=== PATIENT | male | born 1955 | race Two or more races ===

== ENCOUNTER → 2020-04-29 | Outpatient (CLI) | payer BC ==
--- NOTE | 2020-04-29 16:11 | CT ---
EXAMINATION TYPE: CT pelvis w con DATE OF EXAM: 04/29/2020 COMPARISON: None HISTORY: LLQ mass CT DLP: 431.6 mGycm CONTRAST: CT scan of the pelvis is performed with Oral Contrast and with IV Contrast, patient injected with 100 mL of Isovue 300. FINDINGS: At the site of clinical concern left groin there is a large soft tissue mass which measures 7.5 cm AP dimension by 10.3 cm craniocaudal dimension by 6.8 cm transverse dimension. This mass is of uncertai n etiology and may reflect an area of mass or adenopathy. Sarcoma is not excluded. Adjacent vasculatu re is displaced anteromedially. No bony destructive process identified. No additional adenopathy seen within the [id number]. KIDNEYS/BLADDER: Lower poles of the kidneys are free of mass or nephrolithiasis. BOWEL: Normal appendix. Visualized bowel loops are of Normal bowel caliber. No inflammation. GENITAL ORGANS: No gross abnormality. AORTA: No significant abnormality. OSSEOUS STRUCTURES: No significant abnormality is seen. OTHER: No significant additional abnormality is seen. IMPRESSION: 1. Solid soft tissue mass left groin at the site of clinical concern likely reflects massive adenopat hy. Sarcoma is not excluded. Tissue diagnosis is recommended.
== END | disposition home or self-care (01) ==
LOC: RADCTMAIN 13:35
PROVIDERS: ATTEND Family Medicine
DX: R19.09 Other intra-abdominal and pelvic swelling, mass and lump (principal)
CPT/HCPCS: 72193; Q9967

== ENCOUNTER → 2020-05-30 | Outpatient (CLI) | payer BC ==
--- NOTE | 2020-05-30 14:44 | NM ---
EXAMINATION TYPE: NM rest muga chemo DATE OF EXAM: 05/30/2020 COMPARISON: NONE HISTORY: Prechemotherapy Following administration of 3ml PYP 24.1 mCi Tc 99m Sodium Pertechnete. FINDINGS: There is good myocardial wall thickening. Ejection fraction 59.7% IMPRESSION: Normal right and left ventricular chamber sizes. Normal right and left ventricular segmental wall mot ion.
== END | disposition home or self-care (01) ==
LOC: RADNMMAIN 13:03
PROVIDERS: ATTEND Internal Medicine
DX: C49.22 Malignant neoplasm of connective and soft tissue of left lower limb, including hip (principal)
CPT/HCPCS: 78472; A9560

== ENCOUNTER 2022-07-25 08:04 | Day surgery (SDC) | payer BC, MEDICARE ==
[~2022-07-25 08:04] MED LIST: LACTATED RINGERS 1,000 ML IV SCH; LIDOCAINE 1% (10MG/ML) FOR IV START INTRADERMA PRN
[2022-07-25 08:36] VITALS: RESP 16; TEMP 97.7
--- NOTE | 2022-07-25 08:41 | P.GSHP ---
History of Present Illness H&P Date: 07/25/22 CHIEF COMPLAINT: Colon screen HISTORY OF PRESENT ILLNESS: The patient is a 66-year-old male who presents for colon screen. Lower endoscopy was offered for further evaluation and management. PAST MEDICAL HISTORY: Please see list. PAST SURGICAL HISTORY: Please see list. MEDICATIONS: Please see list. ALLERGIES: Please see list. SOCIAL HISTORY: No illicit drug use FAMILY HISTORY: No reports of Crohn disease or ulcerative colitis. REVIEW OF ORGAN SYSTEMS: CONSTITUTIONAL: No reports of fevers or chills. PHYSICAL EXAM: VITAL SIGNS: Stable GENERAL: Well-developed pleasant in no acute distress. HEENT: No scleral icterus. Extraocular movements grossly intact. Moist buccal mucosa. NECK: Supple without lymphadenopathy. CHEST: Unlabored respirations. Equal bilateral excursions. CARDIOVASCULAR: Regular rate and rhythm. Distal 2+ pulses. ABDOMEN: Soft, nontender, nondistended. MUSCULOSKELETAL: No clubbing, cyanosis, or edema. ASSESSMENT: 1. Colon screen. PLAN: 1. 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 History of Any Multi-Drug Resistant Organisms: None Reported Additional Past Surgical History / Comment(s): tumor removed from left leg. colonoscopy x3 polyps removed. Past Anesthesia/Blood Transfusion Reactions: No Reported Reaction Additional Past Anesthesia/Blood Transfusion Reaction / Comment(s): no blood transfusions. contrast with MRI caused nausea pt felt is was pushed too fast Smoking Status: Never smoker - Past Family History Mother Family Medical History: Cancer Additional Family Medical History / Comment(s): bone cancer Father Additional Family Medical History / Comment(s): CABG, alzheimers Medications and Allergies Home Medications Medication Instructions Recorded Confirmed Type Cholecalciferol (Vitamin D3) 125 mcg PO DAILY 07/20/22 07/20/22 History [Vitamin D3 (2500 units)] Unk Black Radish 800 mg PO DAILY 07/20/22 07/20/22 History Unk Folate 400mg 400 mg PO DAILY 07/20/22 07/20/22 History Unk Multi Vitamin No Iron 1 tab PO DAILY 07/20/22 07/20/22 History Unk Tumeric 1,500 mg PO DAILY 07/20/22 07/20/22 History Allergies Allergy/AdvReac Type Severity Reaction Status Date / Time No Known Allergies Allergy Verified 07/25/22 08:38 Surgical - Exam Vital Signs Temp Pulse Resp BP Pulse Ox 97.7 F 47 L 16 169/74 99 07/25/22 08:34 07/25/22 08:34 07/25/22 08:34 07/25/22 08:34 07/25/22 08:34
[2022-07-25] MEDS ORDERED: PROPOFOL 10 MG/ML 20 ML VIAL IV ONE (09:18)
[2022-07-25 09:59] VITALS: BP 125/63; PULSE 47
--- NOTE | 2022-07-25 21:55 | P.PCN ---
Date of Procedure: 07/25/22 Description of Procedure: PREOPERATIVE DIAGNOSIS: Colonoscopy screening POSTOPERATIVE DIAGNOSIS: Tubular adenoma transverse colon Internal hemorrhoids, grade 2 OPERATION: Colonoscopy to the ileocecal valve and appendiceal orifice, cecum Colonoscopy with cold forceps biopsy SURGEON: Alba Neri MD. ANESTHESIA: MAC. INDICATIONS: The patient is an 66-year-old male who presents for colon screen. Benefits and risks were described and informed consent was obtained. DESCRIPTION OF PROCEDURE: The patient had undergone Sutab prep. The patient had been brought into the operating room and laid in the left lateral decubitus position. After adequate intravenous sedation, the rectum was examined with 2% lidocaine jelly. The prostate was unremarkable. No external hemorrhoids were encountered. The rectal tone was within normal limits. No lesions were palpated in the rectal vault. An Olympus colonoscope was advanced until the cecum, ileocecal valve and appendiceal orifice were clearly viewed. The prep was good. No large sigmoid diverticulosis was encountered. Colonic polyps were found and removed. No evidence of focal colitis was found. Retroflexion of the scope demonstrated grade 2 internal hemorrhoids without active bleeding or inflammation. The colon was desufflated. The patient had tolerated the procedure well. Withdrawal time was over 6 minutes. FINDINGS: Aronchick preparation quality scale 2 (1-5) Internal hemorrhoids, grade 2 No external hemorrhoids No arteriovenous malformations. No large sigmoid diverticulosis Removal of 1 polyps: - Cold forceps biopsy at mid transverse colon, 5 mm polyp. No focal colitis. RECOMMENDATIONS: Given severity of tubular adenomas, recommend repeat colonoscopy 3 years, 2024. Plan - Discharge Summary Discharge Rx Participant: No New Discharge Prescriptions: Continue Unk Black Radish 800 mg PO DAILY Unk Multi Vitamin No Iron 1 tab PO DAILY Unk Folate 400mg 400 mg PO DAILY Cholecalciferol (Vitamin D3) [Vitamin D3 (2500 units)] 125 mcg PO DAILY Unk Tumeric 1,500 mg PO DAILY Discharge Medication List Cholecalciferol (Vitamin D3) [Vitamin D3 (2500 units)] 125 mcg PO DAILY 07/20/22 [History] Unk Black Radish 800 mg PO DAILY 07/20/22 [History] Unk Folate 400mg 400 mg PO DAILY 07/20/22 [History] Unk Multi Vitamin No Iron 1 tab PO DAILY 07/20/22 [History] Unk Tumeric 1,500 mg PO DAILY 07/20/22 [History] Follow up Appointment(s)/Referral(s): Alba Neri MD [STAFF PHYSICIAN] - As Needed Patient Instructions/Handouts: *Surgery [facility] - (Anesthesia) Endoscopy Discharge Instructions, Colorectal Polyps (GEN) Activity/Diet/Wound Care/Special Instructions: Repeat colonoscopy 3 years, 2024 Discharge Disposition: HOME SELF-CARE
== END 2022-07-25 10:57 | disposition home or self-care (01) ==
LOC: ORWHC2ENDO 08:04
PROVIDERS: ATTEND Surgery Plastic and Reconstructive Surgery
DX: Z12.11 Encounter for screening for malignant neoplasm of colon (principal); D12.3 Benign neoplasm of transverse colon; K64.1 Second degree hemorrhoids; C76.52 Malignant neoplasm of left lower limb; Z80.8 Family history of malignant neoplasm of other organs or systems; Z81.8 Family history of other mental and behavioral disorders; Z79.899 Other long term (current) drug therapy; Z92.3 Personal history of irradiation; Z92.21 Personal history of antineoplastic chemotherapy
CPT/HCPCS: 88305; 45380; J2704